=== PATIENT | female | born 1965 | race Caucasian/White ===

== ENCOUNTER 2017-03-01 16:51 | Emergency (ER) | payer BC ==
[2017-03-01] MEDS ORDERED: methylPREDNISolone ACETATE 80 MG/ML VIAL IM PRN (17:10)
[2017-03-01] MEDS ORDERED: DEXAMETHASONE SOD PHOS 4 MG/ML VIAL IM ONE (17:10)
[2017-03-01] MEDS ORDERED: DOXYCYCLINE MONOHYDRATE 100 MG CAPSULE PO ONE (17:11)
[2017-03-01] MEDS ORDERED: methylPREDNISolone ACETATE 80 MG/ML VIAL IM ONE (17:15)
[2017-03-01 17:59] VITALS: BP 108/58
--- NOTE | 2017-03-01 21:10 | ED Physician Documentation ---
Skin Rash - HISTORIAN Historian: patient - HPI Stated Complaint: Allergic Reaction Chief Complaint: Skin Rash Additional Information: took amoxicillin lasst 2 days Front/Back of Body, Lg ([place]): 1 - rash 2 - rash 3 - rash 4 - rash 5 - rash Onset: hours (4) Timing: still present Duration: worse Location: trunk, RUE, LUE, RLE, LLE Quality: itchy Identified Cause?: Yes (amoxicillin) When Did Symptoms Start: 03/01/17 Where: home Context: Medication Exposure: antibiotic Context: Food Exposure: none Further Comments: no - ROS CONST: none CVS/RESP: none EYES/ENT: none GI/: none MS/SKIN/LYMPH: none NEURO/PSYCH: none - PAST HX Past History: other (hypothyroidism) Other History: none Surgeries/Procedures: No Immunizations: referred to PCP Allergies/Adverse Reactions: Allergies Allergy/AdvReac Type Severity Reaction Status Date / Time amoxicillin trihydrate Allergy Verified 03/01/17 17:21 [From Amoxil] No Known Drug Allergies Allergy Unverified 09/17/16 09:55 Home Medications: Ambulatory Orders Medication Instructions Recorded Levothyroxine Sodium [Synthroid] 125 mcg PO 03/01/17 Valacyclovir HCl [Valacyclovir] 03/01/17 - SOCIAL HX Smoking History: cigarettes Alcohol Use: none Drug Use: none - FAMILY HX Family History: none - VITAL SIGNS Vital Signs: Vital Signs Temp Pulse Resp BP Pulse Ox 97.8 F 78 18 108/58 99 03/01/17 16:51 03/01/17 17:56 03/01/17 17:56 03/01/17 17:56 03/01/17 17:56 - REVIEWED ASSESSMENTS Nursing Assessment Reviewed: Yes Vitals Reviewed: Yes Progress - Results/Orders Results/Orders: no testing ordered - Progress Progress: pt. given 80 mg depo medrol, 8 mg decadron im in er, pt. had already taken benadryl Critical Care Note - Critical Care Note Total Time (mins): 0 ED Results Lab/Radiology - Lab Results Lab Results: none ordered - Radiology Radiology Impressions: none ordered - Orders Orders: ED Orders Category Date Time Status Dexamethasone Sod Phosphate [Decadron] Med 03/01/17 17:10 Discontinued 8 mg IM NOW ONE Doxycycline Monohydrate [Vibramycin] Med 03/01/17 17:11 Discontinued 100 mg PO NOW ONE methylPREDNISolone ACETATE [Depo-Medrol] Med 03/01/17 17:15 Discontinued 80 mg IM .STK-MED ONE methylPREDNISolone ACETATE [Depo-Medrol] Med 03/01/17 17:10 Discontinued 80 mg IM NOW PRN Skin Rash Physical Exam - EXAM General Appearance: mild distress Skin: warm,dry, skin rash (blotchy rash arms and legs) Location: trunk, extremities Character: patchy Symptoms: warmth Extremities: nml ROM, no edema EENT: eyes nml inspection, lips nml, gums nml, pharynx nml Neck: trachea midline, no swelling Respiratory: no resp distress, chest non-tender, breath sounds normal CVS: reg. rate & rhythm, heart sounds nml Abdomen: non-tender, no organomegaly, nml bowel sounds, no distention Neuro/Psych: oriented x3, CN's nml as tested, motor nml, sensation nml, mood/ affect nml Discharge Clincal Impression: Urticaria Referrals: Jenna Wright MD [Primary Care Provider] - 2 Days Home Medications: Ambulatory Orders Levothyroxine Sodium [Synthroid] 125 mcg PO 03/01/17 Valacyclovir HCl [Valacyclovir] 03/01/17 Comments: Discharged in stable condition with script for prednisone taper and recommendation for otc benadryl. Condition: Stable Disposition: 01 HOME, SELF-CARE Decision to Admit: NO Decision Time: 17:55
== END 2017-03-01 17:56 | disposition home or self-care (01) ==
LOC: ED 16:51
DX: L50.9 Urticaria, unspecified (principal); F17.210 Nicotine dependence, cigarettes, uncomplicated
CPT/HCPCS: J1040; J1100; 96372; 99283

== ENCOUNTER 2017-09-30 15:15 | Outpatient (CLI) | payer BC ==
[2017-09-30 15:23] LABS: BASOPHILS % 0.9 (0.0-1.5); EOSINOPHILS % 8.1 % (0.0-6.8); MEAN CORPUSCULAR VOLUME 90.2 fl (80.0-100.0)
[2017-09-30 15:42] LABS: eGFR (African) > 60; eGFR (Non-African) > 60
== END 2017-09-30 15:16 ==
LOC: LAB 15:15
PROVIDERS: ATTEND Family Medicine
DX: R07.0 Pain in throat (principal); R42 Dizziness and giddiness
CPT/HCPCS: 36415; 80053; 85025; 87070

== ENCOUNTER 2017-12-24 15:40 | Outpatient (CLI) | payer BC | END 2017-12-24 15:42 | LOC: LAB 15:40 | PROVIDERS: ATTEND Family Medicine | DX: Z00.00 Encounter for general adult medical examination without abnormal findings (principal); E03.8 Other specified hypothyroidism | CPT/HCPCS: 36415; 80061; 84443 ==

== ENCOUNTER 2018-05-12 08:27 | Day surgery (SDC) | payer BC ==
[2018-05-12] MEDS ORDERED: LACTATED RINGERS 1,000 ML IV.SOLN IV ONE (08:28)
[2018-05-12] MEDS ORDERED: SALINE FLUSH 10 ML DISP.SYRIN IVF ONE (08:28)
[2018-05-12] MEDS ORDERED: PROPOFOL 200 MG/20 ML VIAL IV ONE (08:28)
--- NOTE | 2018-05-15 10:35 | GI Report ---
REFERRING PHYSICIAN: Dr. Jenna Wright PAIL TESTER: Everette Alcocer MD PROCEDURE MEDICATION: Propofol as per anesthesia. INDICATIONS: Patient is a 52-year-old woman. This is her first colonoscopy. Her stools are irregular. Sometimes she is constipated and sometimes she has diarrhea but no bleeding. She denies a family history of colorectal cancer. She did have an attack in February suspected for diverticulitis by CAT scan. That did seem to resolve. CAT scan also showed cholelithiasis and hepatic steatosis. Patient does weight 225 pounds. She is 5 feet 7 inches tall. She has had C- sections. On exam before the procedure, she does have central obesity. There is no tenderness even in the left lower quadrant to palpation today. PROCEDURE PERFORMED: Colonoscopy. PROCEDURE: An Olympus video colonoscope was advanced to the rectum. In the sigmoid, she does have moderate diverticular disease. There is no residual diverticulitis. The colonoscope is slowly advanced all the way then to the cecum. The appendiceal orifice and terminal ileum were normal. On slow withdrawal, the cecum, ascending colon, and transverse colon with no obvious intraluminal lesions noted. The descending colon with some redundancy. The diverticular disease is mainly in the sigmoid and there is no inflammation at present, no residual, no scarring, no narrowing. Retroflexion of the rectum does show some hemorrhoids. Patient tolerated the procedure well. FINDINGS: Moderate diverticular disease of the sigmoid colon. RECOMMENDATIONS: 1. Her diet needs to change. She needs to be on a high-fiber supplement like Benefiber, Metamucil, or Citrucel daily. 2. She needs to get rid of white carbohydrates. 3. More fruits and vegetables in her diet. 4. With this hepatic steatosis, there is a high risk of chronic liver disease and requires a 10% body weight loss, which would be about 25 pounds to take the fat out of the liver. 5. She is to follow up with Dr. Wright. 6. She needs to have her colon re-looked at again at least within 10 years, sooner if clinically indicated if she has recurrent attacks. cc: Dr. Jenna LOVE
== END 2018-05-12 08:30 ==
LOC: OPSURG 08:27
PROVIDERS: ATTEND Internal Medicine Gastroenterology
DX: Z12.11 Encounter for screening for malignant neoplasm of colon (principal); K57.30 Diverticulosis of large intestine without perforation or abscess without bleeding
CPT/HCPCS: 81025; J2704; J7120; 45378; S1016